=== PATIENT | male | born 1975 | race Caucasian/White ===

== ENCOUNTER 2016-08-12 06:43 | Inpatient (IN) | payer OTHER ==
[~2016-08-12] VITALS: Ht 165.1 cm; Wt 77.7 kg
[2016-08-12 07:37] LABS: GLUCOSE,POINT OF CARE 84 MG/DL (70-110)
[2016-08-12 07:43] LABS: BASOPHILS % (AUTO) 0.3 % (0.0-2.0); EOSINOPHILS % (AUTO) 2.2 % (1.0-6.0); HEMATOCRIT 45.4 % (41-53); HEMOGLOBIN 15.1 g/dL (13.5-17.5); LYMPHOCYTES # (AUTO) 1.7 K/uL (1.0-4.8); LYMPHOCYTES % (AUTO) 33.1 % (22.0-44.0); MEAN CORPUSCULAR HEMOGLOBIN 32.1 pg (26.0-34.0); MEAN CORPUSCULAR HGB CONC 33.4 G/dL (31.0-37.0); MEAN CORPUSCULAR VOLUME 96 fL (80-100); MONOCYTES # (AUTO) 0.5 K/uL (0.1-1.0); MONOCYTES % (AUTO) 10.2 % (2.0-9.0); NEUTROPHILS # (AUTO) 2.7 K/uL (1.8-7.7); NEUTROPHILS % (AUTO) 54.2 % (40.0-70.0); PLATELET COUNT (AUTO) 236 K/uL (150-450); RED BLOOD CELL COUNT(AUTO) 4.71 MIL/uL (4.50-5.90); RED CELL DISTRIBUTION WIDTH 12.9 % (11.5-14.5); WHITE BLOOD COUNT (AUTO) 5.1 K/uL (4.5-11.0)
[2016-08-12 07:46] LABS: ADD UA MICROSCOPIC NO; APPEARANCE,URINE CLEAR (CLEAR); GLUCOSE, URINE (UA) NEGATIVE (NEGATIVE); KETONES,URINE NEGATIVE (NEGATIVE); LEUKOCYTE ESTERASE ,URINE NEGATIVE (NEGATIVE); OCCULT BLOOD,URINE NEGATIVE (NEGATIVE); PROTEIN,URINE NEGATIVE (NEGATIVE)
[2016-08-12 07:56] LABS: ANION GAP 7 mmol/L (8-16); CARBON DIOXIDE 29 mmol/L (22-29); CHLORIDE 104 mmol/L (98-107); CREATININE 0.89 mg/dL (0.60-1.30); GLOMERULAR FILTR. RATE CALC > 60 mL/min (>60); POTASSIUM 4.3 mmol/L (3.5-5.1); PROTHROMBIN TIME 10.6 SEC (9.4-11.6); SODIUM SERUM 140 mmol/L (136-145); UREA NITROGEN, BLOOD 16 mg/dL (7-18)
[2016-08-12] MEDS ORDERED: IOVERSOL 350 MG/ML 100 ML VIAL ONE (08:16)
[2016-08-12] MEDS ORDERED: SODIUM CHLORIDE 0.9% 100 ML ONE (08:16)
[2016-08-12 08:18] LABS: ALANINE AMINOTRANSFERASE 27 U/L (12-78); ALBUMIN 3.9 g/dL (3.4-5.0); ASPARTATE AMINOTRANSFERASE 17 U/L (15-37); BILIRUBIN,TOTAL 0.7 mg/dL (0.1-1.0); CREATINE KINASE MB 0.9 ng/mL (0-5); CREATINE KINASE, TOTAL 152 U/L (39-308); TOTAL PROTEIN, SERUM 7.5 g/dL (6.4-8.2)
[2016-08-12] MEDS ORDERED: ASPIRIN 81 MG CHEWABLE TABLET PO ONE (10:15)
[2016-08-12] MEDS ORDERED: ACETAMINOPHEN 325 MG TABLET PO PRN (12:15)
[2016-08-12] MEDS ORDERED: MAGNESIUM HYDROXIDE SUSPENSION 30 ML UDCUP PO PRN (12:15)
[2016-08-12] MEDS: SIMVASTATIN 20 MG TABLET PO SCH (12:21)
[2016-08-12 12:51] LABS: CHOL/HDL RATIO 2.9 (4.2-7.3)
[2016-08-12] MEDS ORDERED: HEPARIN SODIUM,PORCINE 5,000 UNITS/ML VIAL SQ SCH (16:00)
[2016-08-12 16:49] VITALS: BP 120/78
[2016-08-12 16:56] VITALS: BP 120/78
[2016-08-12 19:42] VITALS: BP 123/65
[2016-08-12] MEDS: DOCUSATE SODIUM 100 MG CAPSULE PO SCH (21:05)
[2016-08-12 23:15] VITALS: BP 107/65
[2016-08-13 04:55] VITALS: BP 111/73
[2016-08-13 07:44] VITALS: BP 103/70
[2016-08-13] MEDS: DOCUSATE SODIUM 100 MG CAPSULE PO SCH ×2 (09:03→22:14)
[2016-08-13] MEDS: PANTOPRAZOLE SODIUM 40 MG DR TABLET PO SCH (09:04)
[2016-08-13] MEDS: SIMVASTATIN 20 MG TABLET PO SCH (09:04)
[2016-08-13] MEDS: ASPIRIN 81 MG CHEWABLE TABLET PO SCH (09:05)
[2016-08-13 11:12] VITALS: BP 121/50
[2016-08-13 14:40] LABS: HEMOGLOBIN A1C 5.5 % (4.5-6.2)
[2016-08-13 15:03] LABS: THYROID STIMULATING HORMONE 0.3 uIU/mL (0.36-3.74)
[2016-08-13 15:05] VITALS: BP 127/68
[2016-08-13 19:25] VITALS: BP 119/67
[2016-08-14 00:06] VITALS: BP 116/72
[2016-08-14 04:25] VITALS: BP 118/69
[2016-08-14 07:33] VITALS: BP 111/74
[2016-08-14] MEDS: PANTOPRAZOLE SODIUM 40 MG DR TABLET PO SCH (08:23)
[2016-08-14] MEDS: DOCUSATE SODIUM 100 MG CAPSULE PO SCH (08:23)
[2016-08-14] MEDS: ASPIRIN 81 MG CHEWABLE TABLET PO SCH (08:23)
[2016-08-14] MEDS: SIMVASTATIN 20 MG TABLET PO SCH (08:23)
[2016-08-14 11:08] VITALS: BP 117/70
[2016-08-14] MEDS ORDERED: ASPI-556 PO (12:19)
[2016-08-14] MEDS ORDERED: SIMV20 PO (12:19)
== END 2016-08-14 12:35 | disposition home or self-care (01) | DRG 45 ==
LOC: EMS 06:45 → 5N 15:52
PROVIDERS: ADMIT Internal Medicine; ATTEND Internal Medicine
DX: I63.9 Cerebral infarction, unspecified (principal); R53.1 Weakness; R47.81 Slurred speech; Z79.82 Long term (current) use of aspirin
CPT/HCPCS: 70496; 70551; 82607; 82746; 82962; 83036; 84443; 93005; 93306; 93880; 99285; J7050

== ENCOUNTER 2019-02-22 21:39 | Emergency (ER) | payer OTHER ==
[~2019-02-22] VITALS: Ht 162.6 cm; Wt 82.7 kg
[~2019-02-22 21:39] MED LIST: ASPI-556 PO; SIMV-260 PO
[2019-02-22] MEDS ORDERED: ATOR10TA69 PO (22:07)
[2019-02-22] MEDS ORDERED: CARV6.2534 PO (22:07)
[2019-02-22 22:38] LABS: BASOPHILS % (AUTO) 0.6 % (0.0-2.0); EOSINOPHILS % (AUTO) 2.2 % (1.0-6.0); HEMATOCRIT 41.5 % (41-53); HEMOGLOBIN 14.5 g/dL (13.5-17.5); LYMPHOCYTES # (AUTO) 2.4 K/uL (1.0-4.8); MEAN CORPUSCULAR HEMOGLOBIN 33.1 pg (26.0-34.0); MEAN CORPUSCULAR HGB CONC 34.8 G/dL (31.0-37.0); MEAN CORPUSCULAR VOLUME 95 fL (80-100); MONOCYTES # (AUTO) 0.7 K/uL (0.1-1.0); MONOCYTES % (AUTO) 7.9 % (2.0-9.0); NEUTROPHILS # (AUTO) 5.9 K/uL (1.8-7.7); NEUTROPHILS % (AUTO) 63.3 % (40.0-70.0); PLATELET COUNT (AUTO) 274 K/uL (150-450); RED BLOOD CELL COUNT(AUTO) 4.37 MIL/uL (4.50-5.90); RED CELL DISTRIBUTION WIDTH 12.7 % (11.5-14.5)
[2019-02-22 22:50] LABS: APPEARANCE,URINE CLOUDY (CLEAR); GLUCOSE, URINE (UA) NEGATIVE (NEGATIVE); KETONES,URINE TRACE mg/dL (NEGATIVE); LEUKOCYTE ESTERASE ,URINE NEGATIVE (NEGATIVE); NITRATE,URINE NEGATIVE (NEGATIVE); OCCULT BLOOD,URINE LARGE (NEGATIVE); PROTEIN,URINE POS 1+ (NEGATIVE); UROBILINOGEN,URINE 0.2 mg/dL (<=1.0)
[2019-02-22 22:55] LABS: BILIRUBIN,URINE PRELIM. POSITIVE (NEGATIVE)
[2019-02-22 22:58] LABS: CALCIUM, TOTAL 8.9 mg/dL (8.8-10.5); CREATININE 1.6 mg/dL (0.60-1.30)
[2019-02-22 23:05] LABS: BILIRUBIN,TOTAL 0.5 mg/dL (0.1-1.0); TOTAL PROTEIN, SERUM 7.1 g/dL (6.4-8.2)
[2019-02-22 23:11] LABS: BACTERIA,URINE Few /HPF (None Seen); RBC,URINE >100 /HPF (0-2); SQUAMOUS EPITHELIAL CELL,UR Few /LPF (None Seen); WBC,URINE 0-2 /HPF (0-5)
[2019-02-22 23:12] LABS: MUCUS,URINE Few LPF (None Seen)
[2019-02-23] MEDS ORDERED: SODIUM CHLORIDE 0.9% 1,000 ML IV ONE (00:30)
[2019-02-23] MEDS ORDERED: TAMSULOSIN HCL 0.4 MG CAPSULE PO ONE (01:30)
[2019-02-23] MEDS ORDERED: HYDROCODONE/ACETAMINOPHEN 5-325 MG TABLET PO ONE (01:30)
[2019-02-23 01:32] VITALS: BP 132/88
== END 2019-02-23 01:45 | disposition home or self-care (01) ==
LOC: EMS 21:40
DX: N20.1 Calculus of ureter (principal); I10 Essential (primary) hypertension; Z86.73 Personal history of transient ischemic attack (TIA), and cerebral infarction without residual deficits; Z79.82 Long term (current) use of aspirin
CPT/HCPCS: 36415; 74176; 80053; 81001; 85025; 99284; J7030